=== PATIENT | female | born 1965 | race Caucasian/White ===

== ENCOUNTER → 2024-07-11 | Day surgery (SDC) | payer BC ==
--- NOTE | 2024-07-11 18:07 | RAD REPORT ---
Exam: THYROID NODULE FNA PREPROCEDURE DIAGNOSIS: Right thyroid nodule. E04.1 PROCEDURE: Right thyroid nodule FNA. SPECIMEN: 5 - 25-gauge FNA specimens of the right thyroid nodule. TECHNIQUE: Prior to the procedure , the risks and benefits of a thyroid FNA were explained with the patient rossy guillen consented fully to the procedure. Real-time ultrasound was used to identify the thyroid nodule of interest. The neck was then prepped and draped in the usual sterile fashion. Lidocaine was used to anesthetize the skin and soft tissues down towards the thyroid nodule. 5 separa te 25-gauge needles were then placed using ultrasound guidance into the nodule and specimen was obtained within the needle using a to and fro motion. These needles were placed in solution provided by pathology. The patient tolerated the procedure well without immediate post procedure complication. IMPRESSION: Ultrasound-guided fine-needle aspiration right thyroid nodule
== END ==
LOC: FNA 09:03
PROVIDERS: ATTEND Nurse Practitioner Family
PROC: 0GBH3ZX Excision of Right Thyroid Gland Lobe, Percutaneous Approach, Diagnostic (ICD-10-PCS; principal; 2024-07-11)
DX: E04.1 Nontoxic single thyroid nodule (principal)
CPT/HCPCS: 88162